=== PATIENT | female | born 1990 | race Caucasian/White ===

== ENCOUNTER 2019-09-28 21:29 | Emergency (ER) | payer OTHER ==
[2019-09-28 23:06] LABS: APPEARANCE,URINE CLOUDY; BILIRUBIN,URINE NEGATIVE (NEGATIVE); COLOR,URINE YELLOW; GLUCOSE, URINE NEGATIVE (NEGATIVE); KETONES,URINE NEGATIVE (NEGATIVE); PROTEIN,URINE 100 mg/dL (NEGATIVE); URINE SPECIFIC GRAVITY 1.013; UROBILINOGEN,URINE NEGATIVE mg/dL (<2.0)
[2019-09-28] MEDS ORDERED: CEFTRIAXONE INJ 1000 MG VIAL IM ONE (23:33)
[2019-09-28] MEDS ORDERED: LIDOCAINE 1% INJ-PF (10 MG/ML) 30 ML SDV IM ONE (23:38)
[2019-09-28] MEDS ORDERED: PHENAZOPYRIDINE HCL 200 MG TABLET PO ONE (23:39)
--- NOTE | 2019-09-28 23:55 | ER Document Report ---
HPI - HPI Time Seen by Provider: 09/28/19 22:38 Pain Level: 3 Notes: Otherwise healthy 28-year-old female presenting with what she thinks is a urinary tract infection. Patient reports for the last week she has had dysuria, frequency and urgency. She reports over the last 1 to 2 days she has developed low back pain bilaterally. She denies any fevers, nausea, vomiting. - CONSTITUTIONAL Constitutional: DENIES: Fever, Chills - EENT EENT: DENIES: Sore Throat, Ear Pain, Eye problems - NEURO Neurology: DENIES: Headache, Weakness, Vision blurred, Dizzinesss / Vertigo - CARDIOVASCULAR Cardiovascular: DENIES: Chest pain - RESPIRATORY Respiratory: DENIES: Trouble Breathing, Coughing - GASTROINTESTINAL Gastrointestinal: DENIES: Abdominal Pain, Black / Bloody Stools - URINARY Urinary: DENIES: Dysuria, Urgency, Frequency - MUSCULOSKELETAL Musculoskeletal: DENIES: Extremity pain Past Medical History - General Information source: Patient - Social History Smoking Status: Never Smoker Chew tobacco use (# tins/day): No Frequency of alcohol use: None Drug Abuse: None Family History: Reviewed & Not Pertinent Patient has suicidal ideation: No Patient has homicidal ideation: No Psychiatric Medical History: Reports: Hx Depression Surgical Hx: Negative - Immunizations Immunizations up to date: Yes Vertical Provider Document - CONSTITUTIONAL Notes: PHYSICAL EXAMINATION: GENERAL: Well-appearing, well-nourished and in no acute distress. HEAD: Atraumatic, normocephalic. EYES: Pupils equal round and reactive to light, extraocular movements intact, conjunctiva are normal. ENT: Nares patent, oropharynx clear without exudates. Moist mucous membranes. NECK: Normal range of motion, supple without lymphadenopathy LUNGS: Breath sounds clear to auscultation bilaterally and equal. No wheezes rales or rhonchi. HEART: Regular rate and rhythm without murmurs ABDOMEN: Soft, nontender, nondistended abdomen. No guarding, no rebound. No masses appreciated. Female : No CVA tenderness Musculoskeletal: Normal range of motion, no pitting or edema. No cyanosis. NEUROLOGICAL: Cranial nerves grossly intact. Normal speech, normal gait. N ormal sensory, motor exams PSYCH: Normal mood, normal affect. SKIN: Warm, Dry, normal turgor, no rashes or lesions noted. - INFECTION CONTROL TRAVEL OUTSIDE OF THE [place] IN LAST 30 DAYS: No Course - Re-evaluation Re-evalutation: Laboratory 09/28/19 22:45 Urine Color YELLOW Urine Appearance CLOUDY Urine pH 6.0 Ur Specific [place] 1.013 Urine Protein 100 H Urine Glucose (UA) NEGATIVE Urine Ketones NEGATIVE Urine Blood LARGE H Urine Nitrite (Reflex) POSITIVE H Urine Bilirubin NEGATIVE Urine Urobilinogen NEGATIVE Leukocyte Esterase Rfl LARGE H Urine RBC (Auto) 142 Urine Bacteria (Auto) 1+ Urine WBC (Reflex) > 182 Urine WBC Clumps MANY Squamous Epi Cells Auto 3 Urine Mucus (Auto) RARE Urine Yeast (Budding) PRESENT Urine Ascorbic Acid NEGATIVE Patient appears well, nontoxic, urinalysis as above. Patient has a nitrite positive UA. She has received 1 g of ceftriaxone IM and will be started on oral antibiotics. ED return precautions were discussed, patient verbalized understanding and agreement with same. - Vital Signs Vital signs: Temp Pulse Resp BP Pulse Ox 98.7 F 82 16 126/88 H 96 09/28/19 22:23 09/28/19 22:23 09/28/19 22:23 09/28/19 22:23 09/28/19 22:23 - Laboratory Laboratory results interpreted by me: 09/28/19 22:45 Urine Protein 100 H Urine Blood LARGE H Urine Nitrite (Reflex) POSITIVE H Leukocyte Esterase Rfl LARGE H Discharge - Discharge Clinical Impression: Urinary tract infection Condition: Stable Disposition: HOME, SELF-CARE Additional Instructions: Your urine shows findings consistent with a urinary tract infection. Please take all the antibiotics as directed even if your symptoms have improved. Please follow-up with your primary care physician as needed. Return to emergency room if you develop fever >101F, persistent vomiting, become lethargic, have severe pain in your sides, or any other symptoms that are concerning to you. Prescriptions: Sulfamethoxazole/Trimethoprim [Bactrim Ds Tablet] 1 tab PO BID #14 tablet Phenazopyridine HCl [Pyridium 100 Mg Tablet] 100 mg PO TID #6 tablet Referrals: [facility] [Primary Care Provider] - Follow up as needed
[2019-09-29 00:23] VITALS: BP 139/91
== END 2019-09-29 00:39 | disposition home or self-care (01) ==
LOC: ER 21:29
DX: N39.0 Urinary tract infection, site not specified (principal); M54.5 Low back pain
CPT/HCPCS: 99283; 96372; 87086; 87088; 81001; 87186; J3490; J0696

== ENCOUNTER 2020-06-19 19:29 | Emergency (ER) | payer OTHER, MEDICAID ==
[2020-06-19] MEDS ORDERED: AMOXICILLIN TR/POT CLAVULANATE 875-125 MG TAB PO ONE (20:36)
--- NOTE | 2020-06-19 20:40 | ER Document Report ---
ED Animal Bite - General Chief Complaint: Dog Bite Stated Complaint: RIGHT FOREARM DOG BITE Time Seen by Provider: 06/19/20 20:28 Primary Care Provider: [facility] [Primary Care Provider] - Follow up as needed TRAVEL OUTSIDE OF THE [place] IN LAST 30 DAYS: No - HPI Notes: Patient is a 29-year-old female who presents with a dog bite to her right forearm that occurred just prior to arrival. 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 Her client states that the dog's vaccines are up-to-date. Patient states the dog did not look rabid. She is currently being treated for BV and has 1 more day left of metronidazole. - Related Data Allergies/Adverse Reactions: latex Allergy (Verified 09/28/19 22:38) oxycodone Allergy (Verified 09/28/19 22:38) Home Medications: vit, prozac, buspar, lithium, vit D, ambien prn vistaril prn. flagyl Past Medical History - General Information source: Patient - Social History Smoking Status: Never Smoker Family History: Reviewed & Not Pertinent Psychiatric Medical History: Reports: Hx Depression - Immunizations Immunizations up to date: Yes Review of Systems - Review of Systems Constitutional: No symptoms reported EENT: No symptoms reported Cardiovascular: No symptoms reported Respiratory: No symptoms reported Gastrointestinal: No symptoms reported Genitourinary: No symptoms reported Female Genitourinary: No symptoms reported Musculoskeletal: No symptoms reported Skin: See HPI Hematologic/Lymphatic: No symptoms reported Neurological/Psychological: No symptoms reported Physical Exam - Vital signs Vitals: Temp Pulse Resp BP Pulse Ox 98.4 F 78 16 140/95 H 100 06/19/20 20:20 06/19/20 20:20 06/19/20 20:20 06/19/20 20:20 06/19/20 20:20 - Notes Notes: PHYSICAL EXAMINATION: GENERAL: Well-appearing, well-nourished and in no acute distress. HEAD: Atraumatic, normocephalic. EYES: sclera anicteric, conjunctiva are normal. ENT: Moist mucous membranes. NECK: Normal range of motion LUNGS: Normal work of breathing HEART: 2+ radial pulses bilaterally EXTREMITIES: no pitting or edema. No cyanosis. NEUROLOGICAL: No focal neurological deficits. Moves all extremities spontaneously and on command. PSYCH: Normal mood, normal affect. SKIN: 2 small puncture wounds to the right forearm with some surrounding ecchymosis. No active bleeding. No erythema or warmth noted to the area. Warm, Dry, normal turgor, no rashes or lesions noted. Course - Re-evaluation Re-evalutation: Patient is a 29-year-old female who presents with a dog bite that occurred just prior to arrival. Vitals signs are normal. On exam, 2 small puncture wounds to the right forearm with some surrounding ecchymosis. Wounds are small enough in size that they do not need repair. The vaccination status of the dog is unknown although the patient notes that the dog did not demonstrate any signs of being rabid. A risks and benefits conversation regarding proceeding with a rabies immunoglobulin and rabies vaccination series was had with the patient. I informed the patient that the likelihood of transmission of rabies from a dog bite is very low but is not 0. I likewise informed the patient that if they were to develop rabies they would . The risks of proceeding with rabies vaccination and immunoglobulin therapy were also discussed. After this conversation, the patient elected to avoid p roceeding with rabies immunoglobulin and rabies vaccination at this time. The patient has capacity. Patient will be given a prescription for Augmentin. She is currently being treated for BV with metronidazole and has 1 day left in her antibiotic course. Patient is prone to yeast infections so a prescription for Diflucan will also be given. Return precautions and follow-up instructions given. Patient understands and is in agreement the plan. Patient will be discharged home. - Vital Signs Vital signs: Temp Pulse Resp BP Pulse Ox 98.4 F 81 16 127/89 H 100 06/19/20 21:02 06/19/20 21:02 06/19/20 21:02 06/19/20 21:02 06/19/20 21:02 Discharge - Discharge Clinical Impression: Dog bite Qualifiers: Encounter type: initial encounter Qualified Code(s): W54.0XXA - Bitten by dog, initial encounter Condition: Stable Disposition: HOME, SELF-CARE Additional Instructions: Animal Bites Animal bites are often heavily contaminated with bacteria. In spite of thorough cleansing and proper treatment, these wounds frequently become infected. Bite wounds of the hands are especially prone to complications. Bites are dressed, if possible. Large wounds may require suturing after internal cleansing. Because of infection risk, some large wounds must remain unstitched. Your doctor is trained to advise you on the best treatment for your bite. Call the doctor at once if the wound becomes red, swollen, warm, increasingly painful, or if it begins to drain. Danger signs also include red streaks up the involved extremity, swollen glands in the groin or under the arm, or fever and chills. The risk of rabies from domestic animals is very low. Bats, sick animals, and wild animals may expose you to rabies. The physician, or the health department, will inform you if you will need to receive the rabies vaccine. Prescriptions: Amoxicillin/Potassium Clav [Augmentin 875-125 Tablet] 1 tab PO Q12 7 Days #14 tablet Fluconazole [Diflucan] 150 mg PO ONCE #1 tablet Referrals: [facility] [Primary Care Provider] - Follow up as needed
[2020-06-19 21:19] VITALS: BP 127/89
== END 2020-06-19 21:00 | disposition home or self-care (01) ==
LOC: ER 19:29
DX: S51.851A Open bite of right forearm, initial encounter (principal); W54.0XXA Bitten by dog, initial encounter; Y99.0 Civilian activity done for income or pay; Z91.040 Latex allergy status; Z88.0 Allergy status to penicillin
CPT/HCPCS: 99283; J3490